=== PATIENT | male | born 1995 | race Hispanic/Latino ===

== ENCOUNTER 2018-03-27 22:20 | Emergency (ER) | payer BC ==
[~2018-03-27] VITALS: Ht 172.7 cm; Wt 61.2 kg
--- OUTSIDE RECORDS SUMMARY | 2018-03-27 22:23 | XMS REPORT | Summary of Care ---
Author Author [facility] General Surgery [facility] General Surgery [place] Address Unknown Phone Unavailable Encounter HQ Alfr_ania(FIN) [id number] Date(s): 05/17/17 - 05/17/17 [facility] General Surgery [place] [address] [place], [place] [address]- [phone] Discharge Disposition: Home or Self Care Attending Physician: Toni Billingsley MD Vital Signs Most recent to 1 oldest [Reference Range]: Height 175.26 cm (05/17/17 1:16 PM) Temperature Oral 98.2 DegF [96.4-99.1 DegF] (05/17/17 1:16 PM) Blood Pressure 112/71 mmHg [90-140/60-90 mmHg] (05/17/17 1:16 PM) Peripheral Pulse 63 bpm Rate [60-100 bpm] (05/17/17 1:16 PM) Weight 59.091 kg (05/17/17 1:16 PM) Body Mass Index 19.24 m2 (05/17/17 1:16 PM) Problem List No data available for this section Allergies, Adverse Reactions, Alerts Substance Reaction Severity Status NKDA Active Medications No Known Medications Results No data available for this section Immunizations No data available for this section Procedures Procedure Date Related Diagnosis Body Site Status Primary repair of umbilical hernia 2001 Completed Social History Social History Type Response Substance Abuse Use: None. Alcohol Never Smoking Status Never smoker; Exposure to Tobacco Smoke None; Cigarette Smoking Last 365 Days No; Reg Smoking Cessation Counseling No entered on: 05/17/17 Assessment and Plan No data available for this section
--- OUTSIDE RECORDS SUMMARY | 2018-03-27 22:23 | XMS REPORT | Summary of Care ---
Author Author [facility] Organization [facility] Address Unknown Phone Unavailable Encounter HQ Hudson_ania(FIN) [id number] Date(s): 05/18/17 - 05/18/17 [facility] [address] [address] [place] [address]- [place] [phone] Discharge Disposition: Home or Self Care Attending Physician: Xiomara Wynn MD Vital Signs Most recent to 1 oldest [Reference Range]: Height 175.26 cm (05/18/17 12:05 PM) Temperature Oral 98.3 DegF [96.4-99.1 DegF] (05/18/17 12:05 PM) Blood Pressure 130/67 mmHg [90-140/60-90 mmHg] (05/18/17 12:05 PM) Peripheral Pulse 67 bpm Rate [60-100 bpm] (05/18/17 12:05 PM) Weight 58.636 kg (05/18/17 12:05 PM) Body Mass Index 19.09 m2 (05/18/17 12:05 PM) Problem List No data available for this section Allergies, Adverse Reactions, Alerts Substance Reaction Severity Status NKDA Active Medications azithromycin 500 mg oral tablet 1,000 mg=2 tab, PO, ONCE, # 2 tab, 0 Refill(s), Pharmacy: [id number] Start Date: 05/18/17 Status: Ordered cefTRIAXone 500 mg, Route: IM, Drug form: PDR/INJ, ONCE, Dosing Weight 58.636, kg, Start yamila e: 05/18/17 12:19:00 CDT, Stop date: 05/18/17 12:19:00 CDT Start Date: 05/18/17 Stop Date: 05/18/17 Status: Completed Results No data available for this section [...]
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
--- OUTSIDE RECORDS SUMMARY | 2018-03-27 22:23 | XMS REPORT ---
Author [facility] Address Unknown Phone Unavailable Care Team Providers Care Job Cost Estimator Name Role Phone Unavailable Unavailable Payers Payer Name Policy Type Policy Number Effective Date Expiration Date Problems This patient has no known problems. Allergies, Adverse Reactions, Alerts Allergy Name Allergy Type Status Severity Reaction(s) Onset Date Inactive Date Treating Clinician Comments No Known Allergies DA Active U 2017-11-13 00:00:00 No Known Allergies DA Active U 2010-11-08 00:00:00 Medications This patient has no known medications.
[2018-03-27] MEDS ORDERED: ONDANSETRON HCL INJ 2MG/ML 2ML 2 MG/ML VIAL IV STA (22:53)
[2018-03-27] MEDS ORDERED: HYDROMORPHONE 1MG/1ML INJ IV STA (22:53)
[2018-03-27] MEDS ORDERED: HYDROMORPHONE 2MG/ML 2 MG/ML ML IV ONE (23:00)
[2018-03-27] MEDS ORDERED: CEFAZOLIN SOD 1 GM/D5W 50ML 50 ML IV ONE (23:15)
--- NOTE | 2018-03-27 23:15 | NUR ---
RT AC 18G PIV, STARTED AT THIS TIME. PT TOLERATED WELL. MEDS GIVEN PER MD ORDER. SEE APR. RADIOLOGY AT BEDSIDE AT THIS TIME.
[2018-03-27 23:29] LABS: BASOPHILS % 0.3 % (0.0-1.0); EOSINOPHILS % 0.1 % (0.0-6.0); HEMATOCRIT 43.2 % (38.2-49.6); HEMOGLOBIN 14.8 g/dL (14.0-18.0); LYMPHOCYTES # (AUTO) 1.9 (1.0-3.2); LYMPHOCYTES % 21.5 % (18.0-39.1); MEAN CORPUSCULAR HEMOGLOBIN 31.3 pg (28-32); MEAN CORPUSCULAR HGB CONC 34.3 g/dL (31-35); MEAN CORPUSCULAR VOLUME 91.3 fL (81-99); MONOCYTES # (AUTO) 0.6 (0.2-0.8); MONOCYTES % 6.5 % (4.4-11.3); NEUTROPHILS # (AUTO) 6.3 (2.1-6.9); NEUTROPHILS % 71.4 % (38.7-80.0); PLATELET COUNT 178 x10e3/uL (140-360); RED BLOOD COUNT 4.73 x10e6/uL (4.3-5.7); RED CELL DISTRIBUTION WIDTH 11.6 % (11.7-14.4)
[2018-03-27 23:47] LABS: ALANINE AMINOTRANSFERASE 12 IU/L (0-55); ALBUMIN 4.6 g/dL (3.5-5.0); ALBUMIN/GLOBULIN RATIO 2.3 (0.8-2.0); ALKALINE PHOSPHATASE 76 IU/L (40-150); ANION GAP 16.3 mmol/L (8-16); BLOOD UREA NITROGEN 7 mg/dL (7-26); BUN/CREATININE RATIO 9 (6-25); CALCIUM 9.2 mg/dL (8.4-10.2); CARBON DIOXIDE 25 mmol/L (22-29); CHLORIDE 101 mmol/L (98-107); CREATININE, SERUM 0.75 mg/dL (0.72-1.25); EST GLOMERULAR FILTRATION RATE > 60 ML/MIN (60-); GLUCOSE 94 mg/dL (74-118); POTASSIUM 3.3 mmol/L (3.5-5.1); SODIUM 139 mmol/L (136-145)
--- NOTE | 2018-03-28 00:06 | Diagnostic Imaging Report ---
FINGER LEFT Comparison: None Clinical history: Injury to the finger Findings: Traumatic obliquely oriented slightly comminuted fracture through the distal aspect of the fourth digit middle phalanx/DIP joint with radial displacement and volar angulation. Impression: Traumatic displaced fracture through the distal aspect of the fourth digit middle phalanx/DIP joint. Signed by: Dr Kirstin Hodges MD on 03/28/2018 12:02 AM
--- NOTE | 2018-03-28 00:09 | NUR ---
TRANSFER TO [facility] INITIATED, SPOKE WITH FADI TAM TRENCH TRIMMER FINE
--- NOTE | 2018-03-28 00:30 | NUR ---
DR BOLANOS AT BEDSIDE AT THIS TIME EXPLAINING TRANSFER REASON TO PT, VERBALZIED UNDERSTANDING. PT REPORTS NO PAIN AT THIS TIME. AWAITING EMS.
== END 2018-03-28 01:45 | disposition other institution (70) ==
LOC: ER 22:20
DX: S62.625B Displaced fracture of middle phalanx of left ring finger, initial encounter for open fracture (principal); W23.1XXA Caught, crushed, jammed, or pinched between stationary objects, initial encounter; Y99.0 Civilian activity done for income or pay
CPT/HCPCS: 36415; 73140; 80053; 85025; 96374; 96375; 99284; J0690; J1170; J2405